=== PATIENT | male | born 1990 | race Caucasian/White ===

== ENCOUNTER 2018-09-08 11:01 | Emergency (ER) | payer OTHER ==
[~2018-09-08] VITALS: Ht 172.7 cm; Wt 88.5 kg
[2018-09-08 11:12] VITALS: BP_SYST 123
[2018-09-08] MEDS ORDERED: ACETAMINOPHEN 500 MG TABLET PO ONE (14:00)
[2018-09-08] MEDS ORDERED: LIDOCAINE/EPI 1% 1:100000 20 ML VIAL INJ ONE (14:00)
[2018-09-08] MEDS ORDERED: BACITRACIN 1 GM OINT TP ONE (14:30)
[2018-09-08 14:31] VITALS: BP_SYST 121
== END 2018-09-08 14:31 | disposition home or self-care (01) ==
LOC: SED 11:01
DX: S01.01XA Laceration without foreign body of scalp, initial encounter (principal); R55 Syncope and collapse; R03.0 Elevated blood-pressure reading, without diagnosis of hypertension; W19.XXXA Unspecified fall, initial encounter; Y93.B2 Activity, push-ups, pull-ups, sit-ups; Y92.89 Other specified places as the place of occurrence of the external cause; Y99.8 Other external cause status
CPT/HCPCS: 99283; 99284

== ENCOUNTER 2018-09-22 07:59 | Emergency (ER) | payer OTHER ==
[~2018-09-22] VITALS: Ht 172.7 cm; Wt 88.5 kg
[2018-09-22 08:06] VITALS: BP_SYST 130
[2018-09-22 08:40] VITALS: BP_SYST 129
== END 2018-09-22 08:40 | disposition home or self-care (01) ==
LOC: SED 07:59
DX: S01.01XD Laceration without foreign body of scalp, subsequent encounter (principal); W19.XXXD Unspecified fall, subsequent encounter
CPT/HCPCS: 99281